=== PATIENT | female | born 1955 | race African-American/Black ===

== ENCOUNTER 2016-07-06 10:08 | Emergency (ER) ==
[2016-07-06 10:13] VITALS: BP 140/71
[2016-07-06] MEDS ORDERED: PHENERGAN IM ONE (11:27)
[2016-07-06] MEDS ORDERED: DECADRON IM ONE (11:27)
--- NOTE | 2016-07-06 11:27 | PROVIDER DOCUMENTATION ---
[facility] General - General Chief Complaint: Sore Throat Stated Complaint: SORE THROAT Time Seen by Provider: 07/06/16 10:34 Source: patient Allergies/Adverse Reactions: Patient Allergies Allergy/AdvReac Type Severity Reaction Status Date / Time No Known Allergies Allergy Verified 12/21/15 08:19 Home Medications: Home Medication List Medication Instructions Recorded Confirmed Last Taken Type Atorvastatin Calcium [Lipitor] 1 tab PO DAILY 02/13/15 12/21/15 12/03/15 07:00 History LISINOpril/HCTZ [Prinzide 1 tab PO DAILY 02/13/15 12/21/15 12/03/15 07:00 History 02/19.5MG] Albuterol Sulfate Inhaler 2 puff INH [id number] #1 inhaler 11/01/15 12/21/15 20:00 Rx [Ventolin Hfa] Ondansetron [Zofran Odt] 8 mg PO Q8H PRN #20 tab.rapdis 12/04/15 12/21/15 Unknown Rx Albuterol 2.5MG/Ipratrop 0.5MG 3 ml INH Q4H PRN PRN #60 neb 12/21/15 Unknown Rx [Duoneb] Albuterol Sulfate [Proair Hfa] 1 dose 12/21/15 12/21/15 History Fluticasone/Salmeterol [Advair 1 each IH BID #1 disk.w.dev 12/21/15 Unknown Rx 500-50 Diskus] Ondansetron Odt [Zofran 8Mg Odt] 8 mg PO Q8H PRN PRN #20 tablet 07/06/16 Unknown Rx Penicillin V Potassium 500 mg PO BID #20 tablet 07/06/16 Unknown Rx - History of Present Illness-EENT General Nature of Presenting Problem: 61 y/o BF c/o sore throat x 4 days. Pt states no fever/chills, cough, D/C, abd. pain, MATTHEWS, sinus congestion. States some vomiting today. Reports pain with swallowing, and has not eaten today. Denies any other sxs. No sick contacts. Review of Systems - Adult - REVIEW OF SYSTEMS - ADULT Constitutional: reports: no symptoms reported. denies: chills, fever Eyes: reports: no symptoms reported. denies: blurred vision, double vision Ears, Nose, Mouth & Throat: reports: see HPI, throat pain. denies: ear pain, nose pain Cardiovascular: reports: no symptoms reported. denies: chest pain, palpitations Respiratory: reports: no symptoms reported. denies: cough, shortness of breath Gastrointestinal: reports: see HPI, nausea, poor appetite, vomiting. denies: abdominal pain, constipation, diarrhea Genitourinary: reports: no symptoms reported. denies: dysuria, frequency Musculoskeletal: reports: no symptoms reported. denies: joint pain, joint swelling Integumentary: reports: no symptoms reported. denies: nail changes, rash Neurological: reports: no symptoms reported. denies: numbness, paresthesia Psychiatric: reports: no symptoms reported Endocrine: reports: no symptoms reported. denies: cold intolerance, heat intolerance Hematologic/Lymphatic: reports: no symptoms reported. denies: easy bruising, prolonged bleeding Allergic/Immunologic: reports: no symptoms reported All Other Systems: Reviewed and Negative Past History - Adult - PAST MEDICAL HISTORY-ADULT Review of Records: reports: Nursing Assessment Review, Medications Reviewed Major Childhood Illnesses: reports: denies history Cardiovascular: reports: HTN Respiratory: reports: asthma Musculoskeletal: reports: arthritis Neurological: reports: headaches/migraines - PRIOR SURGERIES/PROCEDURES Surgical/Procedure History: reports: BTL - IMMUNIZATION STATUS Childhood Immunizations: See Nurse Assessment Flu Vaccine: See Nurse Assessment - FAMILY HISTORY Family History: reviewed, not pertinent Physical Exam- EENT - Physical Exam EENT Initial Vital Signs Reviewed: Yes General Appearance: alert, mild distress Eye Exam: bilateral eye: normal inspection Ear Exam: bilateral ear: auricle normal Nasal Exam: normal inspection. negative: sinus tenderness Throat Exam: normal mouth inspection, tonsillar exudate, tonsillar swelling. negative: pharynx normal (erythema), uvula swelling Neck: supple, normal inspection, lymphadenopathy (ant. cervical) Respiratory: lungs clear, normal breath sounds. negative: crackles, rales, rhonchi, stridor, wheezing Cardiovascular: tachycardia. negative: bradycardia Abdominal Exam: normal bowel sounds, non tender, soft. negative: distended, guarding, rigid Lymphatic: cervical node tenderness Back Exam: normal inspection Extremity: normal gait Integumentary: normal color, normal turgor, warm/dry. negative: rash Neurologic: negative: aphasia Psych/Mental Status: normal mood/affect, normal thought content, normal thought process, oriented x 3 Departure - Departure Time of Disposition Order: 11:23 DIAGNOSIS: Strep pharyngitis Disposition: HOME 01 Certified Medical Emergency: Emergent Condition: Stable Additional Instructions: Take medications as directed. Follow up with PCP in 3-5 days for a recheck. Drink plenty of fluids. Tylenol and/or motrin for fever/pain. ED Follow Up Instructions: You have been treated by a care provider in the Emergency Department. These instructions are being provided to you so you can have an understanding of how to care for yourself upon discharge. Upon discharge from the Emergency Department, you are responsible for making arrangements for follow-up care by a physician of your choice. Take all prescribed medications as directed. Return to the Emergency Department immediately for any new or worsening symptoms. You may call the Physician Referral phone number at [phone] to obtain a list of Physicians who are taking new patients. Prescriptions: Penicillin V Potassium 500 mg PO BID #20 tablet Ondansetron Odt [Zofran 8Mg Odt] 8 mg PO Q8H PRN PRN #20 tablet PRN Reason: Nausea Referrals: Kd Chavez MD [Primary Care Provider] - Attestation - Physician/ DELL Attestation Patient care was provided by Advanced Practice Provider:: Yes Advanced Practice Provider:: Grisel Chaparro Advanced Practice Provider documentation review:: The Mid-level provider documentation, treatment plan and medical decision making was reviewed by the physician who agrees with all treatment and medical decision making by the MLP.
== END 2016-07-06 12:08 | disposition home or self-care (01) ==
LOC: P.ED 10:08
DX: J02.0 Streptococcal pharyngitis (principal); R11.2 Nausea with vomiting, unspecified; R22.1 Localized swelling, mass and lump, neck; R59.0 Localized enlarged lymph nodes; R00.0 Tachycardia, unspecified; I10 Essential (primary) hypertension; M19.90 Unspecified osteoarthritis, unspecified site; J45.909 Unspecified asthma, uncomplicated; Z79.899 Other long term (current) drug therapy
CPT/HCPCS: 87430; 96372; J1100; J2550